=== PATIENT | male | born 1945 | race Caucasian/White ===

== ENCOUNTER 2017-04-16 06:56 | Day surgery (SDC) | payer MEDICARE, BC ==
[2017-04-11 10:26] VITALS: BMI 23.3
[~2017-04-16 06:56] MED LIST: LACTATED RINGERS 1,000 ML IV SCH; LIDOCAINE 1% 20 ML VIAL (10MG/ML) FOR IV START INTRADERMA PRN
[2017-04-16 07:28] VITALS: TEMP 97.9
[2017-04-16] MEDS ORDERED: PROPOFOL 10 MG/ML 20 ML VIAL IV ONE (07:52)
--- NOTE | 2017-04-16 08:38 | P.PCN ---
Date of Procedure: 04/16/17 Preoperative Diagnosis: Prior history of colon polyps Postoperative Diagnosis: Polyp cecal area hot biopsy obtained and tattooed, polyp just superior to this removed with snare polypectomy and retrieved, sigmoid diverticuli, internal hemorrhoids Procedure(s) Performed: Colonoscopy Implants: Anesthesia: MAC Surgeon: Chitra Vincent Estimated Blood Loss (ml): 0 IV fluids (ml): 250 Pathology: other (Biopsy sessile polyps cecal area, snare polypectomy and retrieval of polyp right colon) Condition: stable Disposition: PACU Indications for Procedure: Prior history colon polyps Operative Findings: Sessile polypoid area cecal areas, biopsies obtained and the area tattooed, snare polypectomies polypoid area right colon, sigmoid diverticuli, internal hemorrhoids Description of Procedure: Mr. Hensley is a 71-year-old gentleman who underwent prior colonoscopy and had polypoid lesions removed. He had questionable polypoid areas in the right colon which could not be well demonstrated again as the scope was removed on his last colonoscopy. Patient therefore returns for repeat colonoscopy. Patient was taken to the endoscopy suite and following sedation rectal exam was performed. Patient was noted to have adequate sphincter tone no masses. Colonoscope was passed through the anus into the rectum. Was passed through the sigmoid colon up to the splenic flexure. Was passed through the transverse colon hepatic flexure right colon down to the area of the cecum. In the area of the cecum there was a appeared to be a sessile polypoid area. Hot biopsies were obtained and the area was tattooed with 5 mL of methylene blue. As the scope was withdrawn a second polypoid area was seen just distal to this towards the hepatic flexure. Snare polypectomy was performed and the polyp was removed and retrieved. As the scope was withdrawn no other lesions of concern were seen in the transverse colon. No lesions of concern in the left colon. Scattered diverticuli were noted in the sigmoid colon. The scope was brought down to the rectum where it was retroflexed internal hemorrhoids identified. Impression/plan: 1. Polypoid area in the cecum biopsies obtained and tattooed 2. Right colon polyp removed with snare polypectomy and retrieved 3. Sigmoid diverticuli 4. Internal hemorrhoids Plan: 1. Await results of biopsies 2. Conservative management of diverticuli 3. Conservative management of hemorrhoids
--- NOTE | 2017-04-16 08:40 | P.DS ---
Providers Attending physician: Chitra Vincent Primary care physician: Niranjan Washburn Plan - Discharge Summary New Discharge Prescriptions: No Action Clopidogrel [Plavix] 75 mg PO HS Atorvastatin [Lipitor] 20 mg PO HS Metoprolol Succinate [Toprol XL] 50 mg PO HS Cholecalciferol (Vitamin D3) [Vitamin D3] 2,000 unit PO HS Aspirin [Adult Low Dose Aspirin EC] 162 mg PO HS Discharge Medication List Aspirin [Adult Low Dose Aspirin EC] 162 mg PO HS 04/11/17 [History] Atorvastatin [Lipitor] 20 mg PO HS 04/11/17 [History] Cholecalciferol (Vitamin D3) [Vitamin D3] 2,000 unit PO HS 04/11/17 [History] Clopidogrel [Plavix] 75 mg PO HS 04/11/17 [History] Metoprolol Succinate [Toprol XL] 50 mg PO HS 04/11/17 [History] Follow up Appointment(s)/Referral(s): Chitra Vincent MD [STAFF PHYSICIAN] - 1 Week Activity/Diet/Wound Care/Special Instructions: diverticular diet Discharge Disposition: HOME SELF-CARE
[2017-04-16 08:51] VITALS: PULSE 60
[2017-04-16 09:14] VITALS: BP 168/85; RESP 18
== END 2017-04-16 09:16 | disposition home or self-care (01) ==
LOC: ORWHC2ENDO 06:56
PROVIDERS: ATTEND Surgery
DX: Z12.11 Encounter for screening for malignant neoplasm of colon (principal); D12.2 Benign neoplasm of ascending colon; D12.3 Benign neoplasm of transverse colon; D12.0 Benign neoplasm of cecum; K57.30 Diverticulosis of large intestine without perforation or abscess without bleeding; K64.8 Other hemorrhoids; Z86.010 Personal history of colon polyps; F17.200 Nicotine dependence, unspecified, uncomplicated; I25.10 Atherosclerotic heart disease of native coronary artery without angina pectoris; I25.2 Old myocardial infarction; J44.9 Chronic obstructive pulmonary disease, unspecified; Z79.02 Long term (current) use of antithrombotics/antiplatelets; Z79.82 Long term (current) use of aspirin; Z79.899 Other long term (current) drug therapy
CPT/HCPCS: 88305; 45384; 45385; 45381; J2704; 44404

== ENCOUNTER → 2017-06-03 | Outpatient (CLI) | payer MEDICARE, BC ==
--- NOTE | 2017-06-03 10:39 | XR ---
EXAMINATION TYPE: XR chest 2V DATE OF EXAM: 06/03/2017 COMPARISON: 05/22/2016 HISTORY: COPD TECHNIQUE: Frontal and lateral views of the chest are obtained. FINDINGS: There is no focal air space opacity, pleural effusion, or pneumothorax seen. Pulmonary hy perinflation, biapical lucency, and tapering of the pulmonary vasculature as well as flattening of th e diaphragms on the lateral image relate to underlying COPD The cardiac silhouette size is within nor mal limits. The osseous structures are intact. IMPRESSION: Radiographic sequela of COPD, unchanged from the prior exam, with no acute cardiopulmona ry process.
--- NOTE | 2017-06-03 11:53 | NM ---
EXAMINATION TYPE: NM stress cardiolite complete DATE OF EXAM: 06/03/2017 COMPARISON: 01/10/2011 HISTORY: 72-year-old male with abnormal EKG. History includes palpitations, hypertension, hyperlipide reji, tobacco abuse, COPD/asthma/emphysema, prior myocardial infarction 2003 and prior cardiac cathete rization in 2004. TECHNIQUE: After the intravenous administration of 9.64 mCi Tc 99m Sestamibi - Rest images obtained 45 minutes post injection. The patient exercised using a CHAITANYA protocol and 1 minute prior to peak exercise was injected with 28.1 mCi Tc 99m Sestamibi - Stress images obtained 10 minutes post injecti on. FINDINGS: Targeted heart rate was achieved during performance of the study. Review of stress and rest SPECT alex ges demonstrates no reversible perfusion abnormality. Small septal fixed defect is again noted as see n on the prior examination in 2010. Gated analysis shows dyskinesis of the septal wall with an estima edna left ventricular ejection fraction of 58 %. TID evidence is within normal limits of 0.78. IMPRESSION: 1. No scintigraphic evidence for reversible ischemia. 2. 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 3. Estimated ejection fraction of 58%, decreased from the prior exam of 64%.
--- NOTE | 2017-06-03 12:22 | EST ---
EXERCISE STRESS DATE OF SERVICE: 06/03/2017 AGE: 72 SEX: Male HT: 5'9" WT: 154 PROTOCOL: Cardiolite STAGE: II DURATION OF EXERCISE: 5:12 HEART RATE REST: 82 BLOOD PRESSURE REST: 156/83 MAXIMUM HEART RATE ACHIEVED: 134 MAXIMUM BLOOD PRESSURE: 240/97 85% MPHR: 126 100% MPHR: 148 METS: INDICATIONS: Abnormal EKG. Baseline EKG revealed sinus mechanism without significant ST-T changes. Baseline blood pressure was 156/83, patient walked on standard Janes protocol for 5 minutes 12 seconds. Developed hypertension with a peak blood pressure was 240/97. Patient did not have angina. He had shortness of breath. EKG revealed some baseline artifact. Nonspecific ST-segment changes were noted. There were isolated PVCs to begin with but as exercise progressed he had about a 6-beat run of PVCs in a row unassociated with symptoms. As patient exercised, he did not have any angina but in the recovery period, there was ST-segment depression in inferolateral leads suggestive of ischemia without subjective symptoms of angina. This is a positive stress test with ST-segment changes and ventricular ectopy without subjective symptoms of angina. The nuclear scan results which are more pertinent will be reported by the radiologist. FINAL IMPRESSION: 1. Subjectively patient did not have angina. 2. Limited exercise capacity with a positive stress test by EKG criteria and ventricular ectopy. 3. Hypertensive response to exercise. 4. Nuclear scan results, which are more pertinent, will be reported by the radiologist. 5. Results were called in to Dr. Niranjan Washburn's office. MMODL / IJN: [id number] /
--- NOTE | 2017-06-04 09:46 | ECHOF ---
Referral Reason:R94.31 abd ekg MEASUREMENTS -------- HEIGHT: 175.3 cm WEIGHT: 69.8 kg BP: 183/84 IVSd: 1.1 cm (0.6 - 1.1) LVIDd: 5.2 cm (3.9 - 5.3) LVPWd: 1.1 cm (0.6 - 1.1) IVSs: 1.5 cm LVIDs: 3.5 cm LVPWs: 1.5 cm LAESV Index (A-L): 22.10 ml/m Ao Diam: 3.6 cm (2.0 - 3.7) AV Cusp: 1.5 cm (1.5 - 2.6) LA Diam: 3.3 cm (2.7 - 3.8) MV EXCURSION: 13.991 mm (> 18.000) MV EF SLOPE: 30 mm/s (70 - 150) EPSS: 0.5 cm MV E Juan: 0.43 m/s MV DecT: 481 ms MV A Juan: 0.70 m/s MV E/A Ratio: 0.62 RAP: 5.00 mmHg RVSP: 11.51 mmHg FINDINGS -------- Sinus rhythm. This was a technically adequate study. The left ventricular size is normal. There is borderline concentric left ventricular hypertrophy. Overall left ventricular systolic function is normal with, an EF between 60 - 65 %. Sigmoid shaped septum with focal hypertrophy of the basal septum. The remaining wall thickness is normal. The right ventricle is normal in size and function. Normal LA size by volume 22+/-6 ml/m2. The right atrium is normal in size. Aortic valve is trileaflet and is mildly thickened. Trace amount of aortic regurgitation. There is no evidence of aortic stenosis. The mitral valve leaflets are mildly thickened. There is trace to mild mitral regurgitation. Trace tricuspid regurgitation present. Right ventricular systolic pressure is normal at < 35 mmHg. There is no evidence of pulmonary hypertension. The pulmonic valve is normal. The aortic root size is normal. Normal inferior vena cava with normal inspiratory collapse consistent with estimated right atrial pressure of 5 mmHg. The pericardium is normal. There is no pericardial effusion. CONCLUSIONS -------- 1. Sinus rhythm. 2. The mitral valve leaflets are mildly thickened. 3. There is trace to mild mitral regurgitation. 4. Trace tricuspid regurgitation present. 5. Right ventricular systolic pressure is normal at < 35 mmHg. 6. There is no evidence of pulmonary hypertension. 7. The aortic root size is normal. 8. There is no pericardial effusion. 9. This was a technically adequate study. 10. The left ventricular size is normal. 11. There is borderline concentric left ventricular hypertrophy. 12. Overall left ventricular systolic function is normal with, an EF between 60 - 65 %. 13. Sigmoid shaped septum with focal hypertrophy of the basal septum. The remaining wall thickness is normal. 14. Normal LA size by volume 22+/-6 ml/m2. 15. Aortic valve is trileaflet and is mildly thickened. 16. Trace amount of aortic regurgitation. GREASE MACHINE WORKER: Carter Kimbrough RDCS
== END ==
LOC: RADNMMAIN 08:56
PROVIDERS: ATTEND Family Medicine
DX: J44.9 Chronic obstructive pulmonary disease, unspecified (principal); R94.31 Abnormal electrocardiogram [ECG] [EKG]
CPT/HCPCS: 93017; 93306; 71020; 78452; A9500

== ENCOUNTER 2018-07-23 08:13 | Day surgery (SDC) | payer MEDICARE, BC ==
[2018-07-21 09:34] VITALS: BMI 22.1
--- NOTE | 2018-07-23 05:45 | P.GSHP ---
History of Present Illness H&P Date: 07/23/18 CHIEF COMPLAINT: Colon screen HISTORY OF PRESENT ILLNESS: The patient is a 73-year-old male who presents for colon screen. Lower endoscopy was offered for further evaluation and management. PAST MEDICAL HISTORY: Please see list. PAST SURGICAL HISTORY: Please see list. MEDICATIONS: Please see list. ALLERGIES: Please see list. SOCIAL HISTORY: No illicit drug use FAMILY HISTORY: No reports of Crohn disease or ulcerative colitis. REVIEW OF ORGAN SYSTEMS: CONSTITUTIONAL: No reports of fevers or chills. PHYSICAL EXAM: VITAL SIGNS: Stable GENERAL: Well-developed pleasant in no acute distress. HEENT: No scleral icterus. Extraocular movements grossly intact. Moist buccal mucosa. NECK: Supple without lymphadenopathy. CHEST: Unlabored respirations. Equal bilateral excursions. CARDIOVASCULAR: Regular rate and rhythm. Distal 2+ pulses. ABDOMEN: Soft, nontender, nondistended. MUSCULOSKELETAL: No clubbing, cyanosis, or edema. ASSESSMENT: 1. Colon screen. PLAN: 1. 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., Last Myocardial Infarction Date:: 2004 History of Any Multi-Drug Resistant Organisms: None Reported Past Surgical History: Heart Catheterization With Stent Additional Past Surgical History / Comment(s): COLONOSCOPY Past Anesthesia/Blood Transfusion Reactions: No Reported Reaction Date of Last Stent Placement:: 2004 Smoking Status: Current every day smoker - Past Family History Mother Family Medical History: Cancer Additional Family Medical History / Comment(s): BREAST CANCER Medications and Allergies Home Medications Medication Instructions Recorded Confirmed Type Aspirin [Adult Low Dose Aspirin EC] 162 mg PO HS 04/11/17 07/21/18 History Atorvastatin [Lipitor] 20 mg PO HS 04/11/17 07/21/18 History Cholecalciferol (Vitamin D3) 2,000 unit PO HS 04/11/17 07/21/18 History [Vitamin D3] Metoprolol Succinate [Toprol XL] 50 mg PO HS 04/11/17 07/21/18 History Allergies Allergy/AdvReac Type Severity Reaction Status Date / Time No Known Allergies Allergy Verified 07/21/18 09:30
[~2018-07-23 08:13] MED LIST changes: +HYDROmorphone 1 MG/ML 1 ML SYRINGE IVP PRN; -LIDOCAINE 1% 20 ML VIAL (10MG/ML) FOR IV START INTRADERMA PRN
[2018-07-23 08:41] VITALS: RESP 16; TEMP 97.1
[2018-07-23] MEDS ORDERED: PROPOFOL 10 MG/ML 20 ML VIAL IV ONE (09:35)
[2018-07-23] MEDS ORDERED: LIDOCAINE 1% INJ 10MG/ML (20 ML MDV) ONE (09:35)
[2018-07-23 10:04] VITALS: PULSE 75
--- NOTE | 2018-07-23 10:06 | P.PCN ---
Date of Procedure: 07/23/18 Description of Procedure: PREOPERATIVE DIAGNOSIS: Personal history of colon cancer Colonoscopy screening. POSTOPERATIVE DIAGNOSIS: Personal history of colon cancer Colonoscopy screening. Diverticulosis, scattered. Internal hemorrhoids, grade 2 OPERATION: Colonoscopy to the ileocecal valve and appendiceal orifice. SURGEON: Jeannie Sharp MD. ANESTHESIA: MAC. INDICATIONS: The patient is a 73-year-old female who presents for colonoscopy screening. He had a bowel resection 1 year ago. Benefits and risks were described and informed consent was obtained. DESCRIPTION OF PROCEDURE: The patient had undergone Gatorade, MiraLAX and Dulcolax prep. He had been brought into the operating room and laid in the left lateral decubitus position. After adequate intravenous sedation, the rectum was examined with 2% lidocaine jelly. External hemorrhoids were encountered. The rectal tone was within normal limits. No lesions were palpated in the rectal vault. An Olympus colonoscope was advanced until ileocolic anastomosis was clearly viewed. The prep was excellent with clear visualization of the mucosal folds. The scope was removed with visualization of each mucosal fold. Severe sigmoid diverticulosis was encountered. No colonic polyps were found. No evidence of focal colitis was found. Retroflexion of the scope demonstrated grade 2 internal hemorrhoids without active bleeding or inflammation. The colon was desufflated. The patient had tolerated the procedure well. Withdrawal time was over 6 minutes. FINDINGS: Internal hemorrhoids, grade 2 External prolapsed hemorrhoids. History of right hemicolectomy Severe sigmoid diverticulosis No arteriovenous malformations. No adenomatous polyps. No focal colitis. RECOMMENDATIONS: Lower endoscopy in 1 year2018 Plan - Discharge Summary New Discharge Prescriptions: No Action Atorvastatin [Lipitor] 20 mg PO HS Metoprolol Succinate [Toprol XL] 50 mg PO HS Cholecalciferol (Vitamin D3) [Vitamin D3] 2,000 unit PO HS Aspirin [Adult Low Dose Aspirin EC] 162 mg PO HS Discharge Medication List Aspirin [Adult Low Dose Aspirin EC] 162 mg PO HS 04/11/17 [History] Atorvastatin [Lipitor] 20 mg PO HS 04/11/17 [History] Cholecalciferol (Vitamin D3) [Vitamin D3] 2,000 unit PO HS 04/11/17 [History] Metoprolol Succinate [Toprol XL] 50 mg PO HS 04/11/17 [History]
[2018-07-23 10:35] VITALS: BP 160/80
== END 2018-07-23 10:48 | disposition home or self-care (01) ==
LOC: ORWHC2ENDO 08:13
PROVIDERS: ATTEND Surgery Plastic and Reconstructive Surgery
DX: Z12.11 Encounter for screening for malignant neoplasm of colon (principal); K57.30 Diverticulosis of large intestine without perforation or abscess without bleeding; K64.1 Second degree hemorrhoids; K64.8 Other hemorrhoids; Z85.038 Personal history of other malignant neoplasm of large intestine; I25.10 Atherosclerotic heart disease of native coronary artery without angina pectoris; I10 Essential (primary) hypertension; I25.2 Old myocardial infarction; J43.9 Emphysema, unspecified; Z85.828 Personal history of other malignant neoplasm of skin; Z95.5 Presence of coronary angioplasty implant and graft; F17.200 Nicotine dependence, unspecified, uncomplicated; Z79.82 Long term (current) use of aspirin; Z79.899 Other long term (current) drug therapy
CPT/HCPCS: J2001; J2704; G0105; 45378

== ENCOUNTER → 2019-08-18 | Outpatient (CLI) | payer MEDICARE, BC ==
--- NOTE | 2019-08-18 10:22 | US ---
EXAMINATION TYPE: US duplex aorta DATE OF EXAM: 08/18/2019 COMPARISON: US 2019 CLINICAL HISTORY: I71.4 Abd aortic Aneurysm, wo rupture. Follow up AAA EXAM MEASUREMENTS: Abdominal Aorta: Proximal: 2.3 x 2.3cm Mid: 2.3 x 2.2cm Distal: 2.8 x 3.6cm Right Iliac: 1.0 x 1.1cm Left Iliac: 0.9 x 1.2cm Torturous aorta with distal portion measuring aneurysmal at 2.8 x 3.6cm. IMPRESSION: Abdominal aortic aneurysm with underlying atheromatous changes.
== END ==
LOC: RADUSWWP 06:50
PROVIDERS: ATTEND Family Medicine
DX: I71.4 Abdominal aortic aneurysm, without rupture (principal)
CPT/HCPCS: 93979

== ENCOUNTER 2019-08-19 10:17 | Day surgery (SDC) | payer MEDICARE, BC ==
[2019-08-17 09:21] VITALS: BMI 21.4
--- NOTE | 2019-08-19 08:01 | P.GSHP ---
History of Present Illness H&P Date: 08/19/19 CHIEF COMPLAINT: Colon screen HISTORY OF PRESENT ILLNESS: The patient is a 74-year-old male who presents for colon screen. Lower endoscopy was offered for further evaluation and management. PAST MEDICAL HISTORY: Please see list. PAST SURGICAL HISTORY: Please see list. MEDICATIONS: Please see list. ALLERGIES: Please see list. SOCIAL HISTORY: No illicit drug use FAMILY HISTORY: No reports of Crohn disease or ulcerative colitis. REVIEW OF ORGAN SYSTEMS: CONSTITUTIONAL: No reports of fevers or chills. PHYSICAL EXAM: VITAL SIGNS: Stable GENERAL: Well-developed pleasant in no acute distress. HEENT: No scleral icterus. Extraocular movements grossly intact. Moist buccal mucosa. NECK: Supple without lymphadenopathy. CHEST: Unlabored respirations. Equal bilateral excursions. CARDIOVASCULAR: Regular rate and rhythm. Distal 2+ pulses. ABDOMEN: Soft, nontender, nondistended. MUSCULOSKELETAL: No clubbing, cyanosis, or edema. ASSESSMENT: 1. Colon screen. PLAN: 1. 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., Last Myocardial Infarction Date:: 2004 History of Any Multi-Drug Resistant Organisms: None Reported Past Surgical History: Bowel Resection, Heart Catheterization With Stent Additional Past Surgical History / Comment(s): COLONOSCOPY Past Anesthesia/Blood Transfusion Reactions: No Reported Reaction Date of Last Stent Placement:: 2004 Smoking Status: Current every day smoker - Past Family History Mother Family Medical History: Cancer Additional Family Medical History / Comment(s): BREAST CANCER Medications and Allergies Home Medications Medication Instructions Recorded Confirmed Type Aspirin [Adult Low Dose Aspirin EC] 162 mg PO HS 04/11/17 08/17/19 History Atorvastatin [Lipitor] 20 mg PO HS 04/11/17 08/17/19 History Cholecalciferol (Vitamin D3) 2,000 unit PO HS 04/11/17 08/17/19 History [Vitamin D3] Metoprolol Succinate [Toprol XL] 50 mg PO HS 04/11/17 08/17/19 History Lisinopril [Zestril] 10 mg PO HS 08/17/19 08/17/19 History Allergies Allergy/AdvReac Type Severity Reaction Status Date / Time No Known Allergies Allergy Verified 08/17/19 09:15
[~2019-08-19 10:17] MED LIST changes: -HYDROmorphone 1 MG/ML 1 ML SYRINGE IVP PRN
[2019-08-19 11:09] VITALS: TEMP 97.5
[2019-08-19] MEDS ORDERED: PROPOFOL 10 MG/ML 20 ML VIAL IV ONE (11:38)
[2019-08-19 12:03] VITALS: RESP 16
--- NOTE | 2019-08-19 12:05 | P.PCN ---
Date of Procedure: 08/19/19 Description of Procedure: PREOPERATIVE DIAGNOSIS: Personal history of colon cancer status post right hemicolectomy Colonoscopy surveillance POSTOPERATIVE DIAGNOSIS: Personal history of colon cancer status post right hemicolectomy Colonoscopy surveillance Sigmoid diverticulosis Colon polyp, descending colon External hemorrhoids, grade 2 OPERATION: Colonoscopy to the ileocecal valve and appendiceal orifice. Colonoscopy with multiple cold forceps biopsies. SURGEON: Jeannie Sharp MD. ANESTHESIA: MAC. INDICATIONS: The patient is a 74-year-old male who presents for colonoscopy surveillance after cold resection for colon cancer 2016. Benefits and risks were described and informed consent was obtained. DESCRIPTION OF PROCEDURE: The patient had undergone Suprep. He had been brought into the operating room and laid in the left lateral decubitus position. After adequate intravenous sedation, the rectum was examined with 2% lidocaine jelly. External hemorrhoids were encountered. The rectal tone was within normal limits. No lesions were palpated in the rectal vault. An Olympus colonoscope was advanced to the ileocolic anastomosis. The prep was excellent. Scattered diverticulosis was encountered. Colonic polyps was cold forcep biopsy. No evidence of focal colitis was found. Retroflexion of the scope demonstrated grade 1 internal hemorrhoids without active bleeding or inflammation. The colon was desufflated. The patient had tolerated the procedure well. Withdrawal time was over 6 minutes. FINDINGS: Aronchick preparation quality scale 1 (1-5) Internal hemorrhoids, grade 1 External hemorrhoids, grade 2. No arteriovenous malformations. Sigmoid diverticulosis. Removal of 1 polyp: - Cold forceps biopsy at 50 cm from the anal verge, 4 mm polyp, ascending colon No focal colitis. RECOMMENDATIONS: Next colonoscopy for 2019 with yearly colonoscopies through 2021 for colonoscopy surveillance for colon cancer. Plan - Discharge Summary Discharge Rx Participant: No New Discharge Prescriptions: No Action Atorvastatin [Lipitor] 20 mg PO HS Metoprolol Succinate [Toprol XL] 50 mg PO HS Cholecalciferol (Vitamin D3) [Vitamin D3] 2,000 unit PO HS Aspirin [Adult Low Dose Aspirin EC] 162 mg PO HS Lisinopril [Zestril] 10 mg PO HS Discharge Medication List Aspirin [Adult Low Dose Aspirin EC] 162 mg PO HS 04/11/17 [History] Atorvastatin [Lipitor] 20 mg PO HS 04/11/17 [History] Cholecalciferol (Vitamin D3) [Vitamin D3] 2,000 unit PO HS 04/11/17 [History] Metoprolol Succinate [Toprol XL] 50 mg PO HS 04/11/17 [History] Lisinopril [Zestril] 10 mg PO HS 08/17/19 [History] Follow up Appointment(s)/Referral(s): Jeannie Sharp MD [STAFF PHYSICIAN] - As Needed Patient Instructions/Handouts: Diverticulosis (ED), Colorectal Polyps (GEN), Diverticulosis Diet (GEN) Activity/Diet/Wound Care/Special Instructions: Repeat colonoscopy yearly, next 2019 through 2021 Discharge Disposition: HOME SELF-CARE
[2019-08-19 12:29] VITALS: BP 147/88; PULSE 77
== END 2019-08-19 12:53 | disposition home or self-care (01) ==
LOC: ORWHC2ENDO 10:17
PROVIDERS: ATTEND Surgery Plastic and Reconstructive Surgery
DX: Z12.11 Encounter for screening for malignant neoplasm of colon (principal); K63.5 Polyp of colon; K57.30 Diverticulosis of large intestine without perforation or abscess without bleeding; K64.0 First degree hemorrhoids; K64.1 Second degree hemorrhoids; I25.10 Atherosclerotic heart disease of native coronary artery without angina pectoris; I10 Essential (primary) hypertension; E78.5 Hyperlipidemia, unspecified; Z95.5 Presence of coronary angioplasty implant and graft; Z97.2 Presence of dental prosthetic device (complete) (partial); Z85.038 Personal history of other malignant neoplasm of large intestine; Z85.828 Personal history of other malignant neoplasm of skin; I25.2 Old myocardial infarction; Z90.49 Acquired absence of other specified parts of digestive tract; F17.210 Nicotine dependence, cigarettes, uncomplicated; Z80.3 Family history of malignant neoplasm of breast; Z79.82 Long term (current) use of aspirin; Z79.899 Other long term (current) drug therapy
CPT/HCPCS: 88305; 45380; J2704

== ENCOUNTER 2020-08-03 09:35 | Day surgery (SDC) | payer MEDICARE, BC ==
[2020-08-01 14:41] VITALS: BMI 21.7
--- NOTE | 2020-08-03 09:00 | P.GSHP ---
History of Present Illness H&P Date: 08/03/20 CHIEF COMPLAINT: Colon screen HISTORY OF PRESENT ILLNESS: The patient is a 75-year-old male who presents for colon screen. Lower endoscopy was offered for further evaluation and management. PAST MEDICAL HISTORY: Please see list. PAST SURGICAL HISTORY: Please see list. MEDICATIONS: Please see list. ALLERGIES: Please see list. SOCIAL HISTORY: No illicit drug use FAMILY HISTORY: No reports of Crohn disease or ulcerative colitis. REVIEW OF ORGAN SYSTEMS: CONSTITUTIONAL: No reports of fevers or chills. PHYSICAL EXAM: VITAL SIGNS: Stable GENERAL: Well-developed pleasant in no acute distress. HEENT: No scleral icterus. Extraocular movements grossly intact. Moist buccal mucosa. NECK: Supple without lymphadenopathy. CHEST: Unlabored respirations. Equal bilateral excursions. CARDIOVASCULAR: Regular rate and rhythm. Distal 2+ pulses. ABDOMEN: Soft, nontender, nondistended. MUSCULOSKELETAL: No clubbing, cyanosis, or edema. ASSESSMENT: 1. Colon screen. PLAN: 1. 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 bowel resection 2017 Past Anesthesia/Blood Transfusion Reactions: No Reported Reaction Date of Last Stent Placement:: 2004 Smoking Status: Current every day smoker - Past Family History Mother Family Medical History: Cancer Additional Family Medical History / Comment(s): BREAST CANCER Medications and Allergies Home Medications Medication Instructions Recorded Confirmed Type Aspirin [Adult Low Dose Aspirin EC] 162 mg PO HS 04/11/17 08/01/20 History Atorvastatin [Lipitor] 20 mg PO HS 04/11/17 08/01/20 History Cholecalciferol (Vitamin D3) 2,000 unit PO HS 04/11/17 08/01/20 History [Vitamin D3] Metoprolol Succinate [Toprol XL] 50 mg PO HS 04/11/17 08/01/20 History lisinopriL [Zestril] 10 mg PO HS 08/17/19 08/01/20 History Ascorbic Acid [Vitamin C] 500 mg PO DAILY 08/01/20 08/01/20 History Vitamin B Complex 1 each PO DAILY 08/01/20 08/01/20 History Allergies Allergy/AdvReac Type Severity Reaction Status Date / Time No Known Allergies Allergy Verified 08/01/20 14:34
[~2020-08-03 09:35] MED LIST changes: -LACTATED RINGERS 1,000 ML IV SCH; +LIDOCAINE 1% (10MG/ML) FOR IV START INTRADERMA PRN
[2020-08-03] MEDS: LACTATED RINGERS 1,000 ML IV SCH ×2 (09:50→10:03)
[2020-08-03 10:02] VITALS: TEMP 96.8
[2020-08-03] MEDS ORDERED: PROPOFOL 10 MG/ML 20 ML VIAL IV ONE (10:41)
[2020-08-03] MEDS ORDERED: LIDOCAINE 1% INJ 10MG/ML (20 ML MDV) ONE (10:41)
--- NOTE | 2020-08-03 11:08 | P.PCN ---
Date of Procedure: 08/03/20 Description of Procedure: PREOPERATIVE DIAGNOSIS: Personal history of malignant colon polyps Status post right hemicolectomy POSTOPERATIVE DIAGNOSIS: Personal history of malignant colon polyps Status post right hemicolectomy Rectal adenoma OPERATION: Colonoscopy to the ileocecal valve and appendiceal orifice, cecum Colonoscopy with cold forceps biopsies SURGEON: Jeannie Sharp MD. ANESTHESIA: MAC. INDICATIONS: The patient is an 75-year-old male who presents history of malignant colon polyp s. Last colonoscopy 2 years ago. Benefits and risks were described and informed consent was obtained. DESCRIPTION OF PROCEDURE: The patient had undergone Suprep. He had been brought into the operating room and laid in the left lateral decubitus position. After adequate intravenous sedation, the rectum was examined with 2% lidocaine jelly. The prostate fossa was unremarkable. External hemorrhoids were encountered. The rectal tone was within normal limits. No lesions were palpated in the rectal vault. An Olympus colonoscope was advanced until the cecum, ileocecal valve and appendiceal orifi ce were clearly viewed. The prep was excellent. Sigmoid diverticulosis was encountered. Colonic polyps were found and removed. No evidence of focal colitis was found. Retroflexion of the scope demonstrated grade 2 internal hemorrhoids without active bleeding or inflammation. The colon was desufflated. The patient had tolerated the procedure well. Withdrawal time was over 6 minutes. FINDINGS: Aronchick preparation quality scale 2 (1-5) Internal hemorrhoids, grade 2 External hemorrhoids, grade 2 No arteriovenous malformations. Sigmoid diverticulosis Removal of 1 polyp: - Cold forceps biopsy at 10 cm from the anal verge, 4 mm polyp, rectal polyp No focal colitis. RECOMMENDATIONS: Repeat colonoscopy 3 years, 2022 Plan - Discharge Summary Discharge Rx Participant: No New Discharge Prescriptions: Continue Atorvastatin [Lipitor] 20 mg PO HS Metoprolol Succinate [Toprol XL] 50 mg PO HS Cholecalciferol (Vitamin D3) [Vitamin D3] 2,000 unit PO HS Aspirin [Adult Low Dose Aspirin EC] 162 mg PO HS lisinopriL [Zestril] 10 mg PO HS Ascorbic Acid [Vitamin C] 500 mg PO DAILY Vitamin B Complex 1 each PO DAILY Discharge Medication List Aspirin [Adult Low Dose Aspirin EC] 162 mg PO HS 04/11/17 [History] Atorvastatin [Lipitor] 20 mg PO HS 04/11/17 [History] Cholecalciferol (Vitamin D3) [Vitamin D3] 2,000 unit PO HS 04/11/17 [History] Metoprolol Succinate [Toprol XL] 50 mg PO HS 04/11/17 [History] lisinopriL [Zestril] 10 mg PO HS 08/17/19 [History] Ascorbic Acid [Vitamin C] 500 mg PO DAILY 08/01/20 [History] Vitamin B Complex 1 each PO DAILY 08/01/20 [History] Follow up Appointment(s)/Referral(s): Jeannie Sharp MD [STAFF PHYSICIAN] - As Needed Patient Instructions/Handouts: Colorectal Polyps (DC) Activity/Diet/Wound Care/Special Instructions: Repeat colonoscopy in 3 years, 2022 Discharge Disposition: HOME SELF-CARE
[2020-08-03 11:28] VITALS: BP 167/75; PULSE 67; RESP 20
== END 2020-08-03 11:47 | disposition home or self-care (01) ==
LOC: ORWHC2ENDO 09:35
PROVIDERS: ATTEND Surgery Plastic and Reconstructive Surgery
DX: Z12.11 Encounter for screening for malignant neoplasm of colon (principal); K63.5 Polyp of colon; D12.8 Benign neoplasm of rectum; K64.4 Residual hemorrhoidal skin tags; K57.30 Diverticulosis of large intestine without perforation or abscess without bleeding; K64.1 Second degree hemorrhoids; I10 Essential (primary) hypertension; I25.2 Old myocardial infarction; J43.9 Emphysema, unspecified; F17.200 Nicotine dependence, unspecified, uncomplicated; I25.10 Atherosclerotic heart disease of native coronary artery without angina pectoris; E78.5 Hyperlipidemia, unspecified; Z90.49 Acquired absence of other specified parts of digestive tract; Z85.038 Personal history of other malignant neoplasm of large intestine; Z86.010 Personal history of colon polyps; Z85.828 Personal history of other malignant neoplasm of skin; Z98.890 Other specified postprocedural states; Z95.5 Presence of coronary angioplasty implant and graft; Z79.82 Long term (current) use of aspirin; Z79.899 Other long term (current) drug therapy; Z80.3 Family history of malignant neoplasm of breast
CPT/HCPCS: 88305; 45380; J2001; J2704

== ENCOUNTER → 2020-09-05 | Outpatient (CLI) | payer MEDICARE, BC ==
--- NOTE | 2020-09-05 08:51 | US ---
EXAMINATION TYPE: US duplex aorta DATE OF EXAM: 09/05/2020 COMPARISON: NONE CLINICAL HISTORY: I71.4 abd aortic aneurysm. EXAM MEASUREMENTS: Abdominal Aorta: Proximal: 1.6cm Mid: 3.0cm Distal: 1.8cm Bifurcation: Right 1.0cm Left 0.8cm Dilation of mid aorta. 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 Atheromatous changes noted.
== END | disposition home or self-care (01) ==
LOC: RADUSWWP 08:11
PROVIDERS: ATTEND Family Medicine
DX: I71.4 Abdominal aortic aneurysm, without rupture (principal)
CPT/HCPCS: 93979

== ENCOUNTER → 2022-06-01 | Outpatient (CLI) | payer MEDICARE, BC ==
--- NOTE | 2022-06-01 07:43 | US ---
EXAMINATION TYPE: US duplex aorta DATE OF EXAM: 06/01/2022 COMPARISON: NONE CLINICAL HISTORY: I10 Hypertension. TECHNIQUE: Multiple sonographic images of the abdominal aorta are obtained. FINDINGS: EXAM MEASUREMENTS: Abdominal Aorta: Proximal: 2.2cm Mid: aneurysm measuring 3.0 x 3.1 x 3.2cm Distal: 1.7cm Bifurcation: Right: 0.7 Left: 1.1cm DATA ANALYST REPORT WRITER NOTES: IMPRESSION: Mild aneurysmal dilatation of the midabdominal aorta.
== END | disposition home or self-care (01) ==
LOC: RADUSWWP 06:49
PROVIDERS: ATTEND Family Medicine
DX: I71.4 Abdominal aortic aneurysm, without rupture (principal); I10 Essential (primary) hypertension
CPT/HCPCS: 93979

== ENCOUNTER → 2022-06-26 | Outpatient (CLI) | payer MEDICARE, BC ==
--- NOTE | 2022-06-27 08:47 | CA ---
Transthoracic Echo Report Name: Jose Cuba Age: 77 Gender: M : 1945 Exam Date: 06/26/2022 13:56 Exam Location: [facility] Ht (in): 69 Wt (lb): 143 Ordering Physician: Niranjan Washburn MD Attending/Referring Phys: PHIL, Wu Loss Control Engineer Negrita Little RDCS Procedure CPT: Indications: I10 HYPERTENSION Cardiac Hx: Technical Quality: Fair Contrast 1: Total Dose (mL): Contrast 2: Total Dose (mL): MEASUREMENTS (Male / Female) Normal Values 2D ECHO LV Diastolic Diameter PLAX 3.4 cm 4.2 - 5.9 / 3.9 - 5.3 cm LV Systolic Diameter PLAX 1.9 cm IVS Diastolic Thickness 1.3 cm 0.6 - 1.0 / 0.6 - 0.9 cm LVPW Diastolic Thickness 1.2 cm 0.6 - 1.0 / 0.6 - 0.9 cm LV Relative Wall Thickness 0.7 LA Volume 64.7 cm??? 18 - 58 / 22 - 52 cm??? M-MODE Aortic Root Diameter MM 2.7 cm LA Systolic Diameter MM 4.3 cm LA Ao Ratio MM 1.6 AV Cusp Separation MM 2.2 cm DOPPLER AV Peak Velocity 121.1 cm/s AV Peak Gradient 5.9 mmHg LVOT Peak Velocity 118.8 cm/s LVOT Peak Gradient 5.6 mmHg MV Area PHT 2.4 cm??? Mitral E Point Velocity 77.2 cm/s Mitral A Point Velocity 92.3 cm/s Mitral E to A Ratio 0.8 MV Deceleration Time 318.8 ms FINDINGS Left Ventricle Mildly increased left ventricular wall thickness. Normal left ventricular systolic function with no obvious regional wall motion abnormalities. Left ventricular ejection fraction is estimated at 55-60 %. Right Ventricle Normal right ventricular size and function. Right ventricular systolic pressure within normal limits. Right Atrium Normal right atrial size. Left Atrium Mildly increased left atrial volume. Mitral Valve Structurally normal mitral valve. Mitral valve thickened. Mild mitral regurgitation. Aortic Valve Trileaflet aortic valve. No aortic valve stenosis or regurgitation. Tricuspid Valve Structurally normal tricuspid valve. Mild tricuspid regurgitation. Pulmonic Valve Pulmonic valve not well visualized. Pericardium No pericardial effusion. Aorta Normal size aortic root and proximal ascending aorta. CONCLUSIONS 1. Normal left ventricle size and systolic function 2. Mild mitral and tricuspid regurgitation 3. No pericardial effusion Previewed by: Dr. Thalia Nelson MD (Electronically Signed) Final Date: 27 June 2022 08:46
== END | disposition home or self-care (01) ==
LOC: RADECHMAIN 13:45
PROVIDERS: ATTEND Family Medicine
DX: I08.1 Rheumatic disorders of both mitral and tricuspid valves (principal); I10 Essential (primary) hypertension
CPT/HCPCS: 93306

== ENCOUNTER → 2022-12-17 | Outpatient (CLI) | payer MEDICARE, BC ==
[2022-12-17 20:49] LABS: ALT 24 U/L (10-49); AST 20 U/L (14-35); Chol/HDL Ratio 2.62 Ratio; LDL Cholesterol,Calculated 66.3 mg/dL (0.0-131.0); VLDL Calculation 19.02 mg/dL (5.00-40.00)
== END | disposition home or self-care (01) ==
LOC: LABWHC1 10:48
PROVIDERS: ATTEND Internal Medicine Cardiovascular Disease
DX: E78.2 Mixed hyperlipidemia (principal)
CPT/HCPCS: 36415; 80061; 84450; 84460

== ENCOUNTER 2023-03-16 09:36 | Emergency (ER) | payer MEDICARE, BC ==
[2023-03-16 09:44] VITALS: TEMP 98
[2023-03-16] MEDS ORDERED: AMOXIC-POT CLAV 875-125MG 1 EACH TAB PO STA (09:55)
[2023-03-16] MEDS ORDERED: LIDOCAINE 1% INJ 10MG/ML (30 ML VIAL-PF) SQ ONE (09:55)
[2023-03-16] MEDS ORDERED: DIPH,PERTUS(ACELL)TETVAC-LF 0.5 ML VIAL IM ONE (09:55)
--- NOTE | 2023-03-16 10:38 | ED ---
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 Patient was going to pet his daughter's dog when the dog bit him. Dog is up-to-date on vaccinations. Tetanus status is unknown. Admits to blood thinner use. Denies paresthesias. No other complaints at this time. - Related Data Home Medications Medication Instructions Recorded Confirmed Aspirin [Adult Low Dose Aspirin EC] 162 mg PO HS 04/11/17 08/03/20 Atorvastatin [Lipitor] 20 mg PO HS 04/11/17 08/03/20 Cholecalciferol (Vitamin D3) 2,000 unit PO HS 04/11/17 08/03/20 [Vitamin D3] Metoprolol Succinate [Toprol XL] 50 mg PO HS 04/11/17 08/03/20 lisinopriL [Zestril] 10 mg PO HS 08/17/19 08/03/20 Ascorbic Acid [Vitamin C] 500 mg PO DAILY 08/01/20 08/03/20 Vitamin B Complex 1 each PO DAILY 08/01/20 08/03/20 Previous Rx's Medication Instructions Recorded Amoxic-Pot Clav 875-125Mg 1 tab PO Q12HR 10 Days #20 tab 03/16/23 [Augmentin 875-125] Allergies Allergy/AdvReac Type Severity Reaction Status Date / Time No Known Allergies Allergy Verified 03/16/23 09:44 Review of Systems ROS Statement: Those systems with pertinent positive or pertinent negative responses have been documented in the HPI. ROS Other: All systems not noted in ROS Statement are negative. 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 bowel resection 2017 Past Anesthesia/Blood Transfusion Reactions: No Reported Reaction Date of Last Stent Placement:: 2004 Past Psychological History: No Psychological Hx Reported Smoking Status: Current every day smoker Past Alcohol Use History: None Reported Past Drug Use History: None Reported - Past Family History Mother Family Medical History: Cancer Additional Family Medical History / Comment(s): BREAST CANCER General Exam Limitations: no limitations General appearance: alert, in no apparent distress Respiratory exam: Present: normal lung sounds bilaterally. Absent: respiratory distress, wheezes, rales, rhonchi, stridor Cardiovascular Exam: Present: regular rate, normal rhythm, normal heart sounds. Absent: systolic murmur, diastolic murmur, rubs, gallop, clicks Skin exam: Present: other (8 cm U-shaped laceration on the right palm. 2+ radial pulse. Limited abduction of the fifth digit.) Course Vital Signs 03/16/23 03/16/23 03/16/23 09:41 10:48 11:41 Temperature 98 F 98 F 98 F Pulse Rate 74 61 67 Respiratory 18 16 16 Rate Blood Pressure 240/97 220/92 206/93 O2 Sat by Pulse 98 97 97 Oximetry Procedures - Laceration Laceration #1 Consent Obtained: verbal consent Indication: laceration Site: hand Size (cm): 8 Description: flap, irregular Depth: involves tendon Anesthetic Used: lidocaine 1% Anesthesia Technique: local infiltration Amount (mls): 10 Pre-repair: wound explored (tendon involvement ), irrigated extensively Type of Sutures: nylon Size of Sutures: 4-0 Number of Sutures: 19 Technique: simple, interrupted Patient Tolerated Procedure: well, no complications Medical Decision Making - Medical Decision Making Was pt. sent in by a medical professional or institution ([facility], SOFTWARE ADMINISTRATOR, urgent care, hospital, or usp...) When possible be specific @ -No Did you speak to anyone other than the patient for history (EMS, parent, family, police, friend...)? What history was obtained from this source @ -No Did you review nursing and triage notes (agree or disagree)? Why? @ -I reviewed and agree with nursing and triage notes Were old charts reviewed (outside hosp., previous admission, EMS record, old EKG, old radiological studies, urgent care reports/EKG's, usp records)? Report findings @ -No old charts were reviewed Differential Diagnosis (chest pain, altered mental status, abdominal pain women, abdominal pain men, vaginal bleeding, weakness, fever, dyspnea, syncope, headache, dizziness, GI bleed, back pain, seizure, CVA, palpatations, mental health, musculoskeletal)? @ -Dogbite, hypertension, laceration EKG interpreted by me (3pts min.). @ -None X-rays interpreted by me (1pt min.). @ -None done CT interpreted by me (1pt min.). @ -None done U/S interpreted by me (1pt. min.). @ -None done What testing was considered but not performed or refused? (CT, X-rays, U/S, labs)? Why? @ -None What meds were considered but not given or refused? Why? @ -None Did you discuss the management of the patient with other professionals (professionals i.e. , PA, SOFTWARE ADMINISTRATOR, lab, RT, psych nurse, social sciences instructor, bench molder apprentice, teacher, vice squad police officer, bilingual case manager)? Give summary @ -No Was smoking cessation discussed for >3mins.? @ -No Was critical care preformed (if so, how long)? @ -No Were there social determinants of health that impacted care today? How? (Homelessness, low income, unemployed, alcoholism, drug addiction, transportation, low edu. Level, literacy, decrease access to med. care, assisted, rehab)? @ -No Was there de-escalation of care discussed even if they declined (Discuss DNR or withdrawal of care, Hospice)? DNR status @ -No What co-morbidities impacted this encounter? (DM, HTN, Smoking, COPD, CAD, Cancer, CVA, ARF, Chemo, Hep., AIDS, mental health diagnosis, sleep apnea, morbid obesity)? @ -None Was patient admitted / discharged? Hospital course, mention meds given and route, prescriptions, significant lab abnormalities, going to OR and other pertinent info. @ -Discharge patient laceration was thoroughly cleaned, irrigated sutures were applied wound care instructions were provided patient was started on Augmentin tetanus is updated. Patient did have notable hypertension, hydralazine was given patient will follow-up with PCP. Patient is asymptomatic Undiagnosed new problem with uncertain prognosis? @ -No Drug Therapy requiring intensive monitoring for toxicity (Heparin, Nitro, Insulin, Cardizem)? @ -No Were any procedures done? @ -No Diagnosis/symptom? @ -Dogbite right hand with tendon laceration Acute, or Chronic, or Acute on Chronic? @ -Acute Uncomplicated (without systemic symptoms) or Complicated (systemic symptoms)? @ -Uncomplicated Side effects of treatment? @ -No Exacerbation, Progression, or Severe Exacerbation? @ -No Poses a threat to life or bodily function? How? (Chest pain, [place], [place], pneumonia, PE, COPD, DKA, ARF, appy, cholecystitis, CVA, Diverticulitis, Homicidal, Suicidal, threat to staff... and all critical care pts) @ -No Diagnosis/symptom? @ -Hypertension Acute, or Chronic, or Acute on Chronic? @ -Acute on chronic Uncomplicated (without systemic symptoms) or Complicated (systemic symptoms)? @ -Uncomplicated] Side effects of treatment? @ -none Exacerbation, Progression, or Severe Exacerbation] @ -no Poses a threat to life or bodily function? @ -no Disposition Clinical Impression: Dog bite, hand, Laceration of right hand involving tendon, Hypertension Disposition: HOME SELF-CARE Condition: Stable Instructions (If sedation given, give patient instructions): Animal Bite (ED) Additional Instructions: Please follow-up with orthopedics as directed for your tendon laceration.Please return to the Emergency Department if symptoms worsen or any other concerns. Prescriptions: Amoxic-Pot Clav 875-125Mg [Augmentin 875-125] 1 tab PO Q12HR 10 Days #20 tab Is patient prescribed a controlled substance at d/c from ED?: No Referrals: Niranjan Washburn MD [Primary Care Provider] - 1-2 days Danny Caraballo DO [Doctor of Osteopathic Medicine] - 1-2 days Time of Disposition: 10:50
[2023-03-16] MEDS ORDERED: BACITRACIN OINT 1 EACH PACKET TOPICAL ONE (10:45)
[2023-03-16] MEDS ORDERED: hydrALAZINE HCL 20 MG/ML 1 ML VIAL IVP STA (10:47)
[2023-03-16 10:49] VITALS: RESP 16
[2023-03-16 11:43] VITALS: BP 206/93; PULSE 67
== END 2023-03-16 11:43 | disposition home or self-care (01) ==
LOC: EC 09:36
DX: S66.921A Laceration of unspecified muscle, fascia and tendon at wrist and hand level, right hand, initial encounter (principal); I10 Essential (primary) hypertension; I25.2 Old myocardial infarction; F17.200 Nicotine dependence, unspecified, uncomplicated; Z79.82 Long term (current) use of aspirin; Z79.899 Other long term (current) drug therapy; Z23 Encounter for immunization; W54.0XXA Bitten by dog, initial encounter
CPT/HCPCS: 90715; 99283; 90471; 96374; 12004; J0360; J2001